=== PATIENT | male | born 1965 | race African-American/Black ===

== ENCOUNTER 2018-04-10 14:06 | Emergency (ER) | payer OTHER | END 2018-04-10 17:17 | disposition home or self-care (01) | LOC: FTE 14:06 | DX: Z76.0 Encounter for issue of repeat prescription (principal); I10 Essential (primary) hypertension; J45.909 Unspecified asthma, uncomplicated; F17.210 Nicotine dependence, cigarettes, uncomplicated | CPT/HCPCS: 99284; Z7502 ==

== ENCOUNTER 2018-05-19 12:18 | Emergency (ER) | payer OTHER | END 2018-05-19 13:47 | disposition home or self-care (01) | LOC: FTE 12:18 | DX: Z76.0 Encounter for issue of repeat prescription (principal); I10 Essential (primary) hypertension; F17.210 Nicotine dependence, cigarettes, uncomplicated | CPT/HCPCS: 99283; Z7502 ==